=== PATIENT | female | born 1995 | race American Indian/Alaskan Native ===

== ENCOUNTER 2019-05-28 13:46 | Emergency (ER) | payer SELFPAY ==
[2019-05-28] MEDS ORDERED: SODIUM CHLORIDE 0.9% 1000 ML 1,000 ML IV ONE ×2 (14:52→16:28)
--- NOTE | 2019-05-28 15:01 | Emergency Department Report ---
ED Syncope HPI - General Chief Complaint: Syncope Stated Complaint: AMS/SYNCOPE Time Seen by Provider: 05/28/19 14:52 Source: patient, RN/MD, EMS, EMS notes reviewed, old records, other Exam Limitations: no limitations - History of Present Illness Initial Comments: 24 YO FEMALE COMES TO ER FROM [facility] WHERE SHE HAD REPORT OF "PASSING OUT" WHEN SHE WAS IN THE [place] TODAY. PT HAS A/C MALNUTRITION. SHE IS BEING TREATED FOR MD POST AT [facility]. SHE HAS REPORTED DEC PO INTAKE AND FOOD INTAKE. PMH POST WITH MD SHE LIVES WITH [facility] 3 SMALL CHILDREN UNDER 7YEARS NOK MOTHER SEE [facility] CHART Timing/Prior Episodes: remote history Precipitating Factors: Positive: other Context: standing Loss of Consciousness: no loss of consciousness Current Symptoms: back to normal - Related Data Allergies/Adverse Reactions: Allergies No Known Allergies Allergy (Unverified 05/28/19 15:44) ED Review of Systems ROS: Stated complaint: AMS/SYNCOPE Other details as noted in HPI Comment: All other systems reviewed and negative ED Past Medical Hx - Past Medical History Previous Medical History?: Yes Hx Hypertension: No Hx CVA: No Hx Heart Attack/AMI: No Hx Congestive Heart Failure: No Hx Diabetes: No Hx Deep Vein Thrombosis: No Hx Pulmonary Embolism: No Hx GERD: No Hx Liver Disease: No Hx Renal Disease: No Hx of Cancer: No Hx Sickle Cell Disease: No Hx Arthritis: No Hx Headaches / Migraines: No Hx Seizures: No Hx Kidney Stones: No Hx Psychiatric Treatment: Yes Hx Asthma: No Hx COPD: No Hx Tuberculosis: No Hx Dementia: No Hx HIV: No - Surgical History Past Surgical History?: Yes Additional Surgical History: chronic malnutrition- states she does not make herself vomit; poor po per [facility] records; denies anorexia/bulemia - Family History Family history: no significant - Social History Smoking Status: Never Smoker Substance Use Type: None ED Physical Exam - General Limitations: No Limitations General appearance: alert, in no apparent distress - Head Head exam: Present: atraumatic, normocephalic - Eye Eye exam: Present: normal appearance - ENT ENT exam: Present: mucous membranes moist - Neck Neck exam: Present: normal inspection - Respiratory Respiratory exam: Present: normal lung sounds bilaterally. Absent: respiratory distress - Cardiovascular Cardiovascular Exam: Present: regular rate, normal rhythm. Absent: systolic murmur, diastolic murmur, rubs, gallop - GI/Abdominal GI/Abdominal exam: Present: soft, normal bowel sounds - Extremities Exam Extremities exam: Present: normal inspection - Back Exam Back exam: Present: normal inspection - Neurological Exam Neurological exam: Present: alert, oriented X3 - Psychiatric Psychiatric exam: Present: normal affect, normal mood - Skin Skin exam: Present: warm, dry, intact, pallor. Absent: rash ED Course Vital Signs 05/28/19 05/28/19 05/28/19 15:10 15:28 19:10 Temperature 97.9 F 97.9 F 98.2 F Pulse Rate 94 H 94 H 96 H Respiratory 20 20 16 Rate Blood Pressure 97/62 Blood Pressure 97/62 100/59 [Left] O2 Sat by Pulse 100 100 100 Oximetry 05/28/19 05/28/19 19:25 20:25 Temperature Pulse Rate Respiratory 16 16 Rate Blood Pressure Blood Pressure [Left] O2 Sat by Pulse Oximetry ED Medical Decision Making - Lab Data Result diagrams: 05/28/19 15:06 05/28/19 15:06 - EKG Data -: EKG Interpreted by [facility] EKG shows normal: sinus rhythm Rate: normal - EKG Data When compared to previous EKG there are: no significant change Interpretation: no acute changes - Radiology Data Radiology results: report reviewed, image reviewed - Medical Decision Making Labs 05/28/19 05/28/19 05/28/19 15:06 15:06 15:06 WBC 3.9 L RBC 4.08 Hgb 11.0 Hct 33.3 MCV 82 MCH 27 L MCHC 33 RDW 15.6 H Plt Count 328 Lymph % (Auto) 37.8 H [place] % (Auto) 12.2 H Eos % (Auto) 0.6 Baso % (Auto) 1.2 Lymph # 1.5 [place] # 0.5 Eos # 0.0 Baso # 0.0 Seg Neutrophils % 48.2 Seg Neutrophils # 1.9 Sodium 137 Potassium 4.0 Chloride 102.0 Carbon Dioxide 27 Anion Gap 12 BUN 10 Creatinine 0.6 L Estimated GFR > 60 BUN/Creatinine Ratio 17 Glucose 81 Calcium 8.9 Total Bilirubin < 0.20 AST 16 ALT 18 Alkaline Phosphatase 46 Total Creatine Kinase 22 L CK-MB (CK-2) < 1.0 CK-MB (CK-2) Rel Index 4.5 H Total Protein 6.5 Albumin 3.7 L Albumin/Globulin Ratio 1.3 Urine Opiates Screen Urine Methadone Screen Ur Barbiturates Screen Ur Phencyclidine Scrn Ur Amphetamines Screen U Benzodiazepines Scrn Urine Cocaine Screen U Marijuana (THC) Screen 05/28/19 Unknown WBC RBC Hgb Hct MCV MCH MCHC RDW Plt Count Lymph % (Auto) [place] % (Auto) Eos % (Auto) Baso % (Auto) Lymph # [place] # Eos # Baso # Seg Neutrophils % Seg Neutrophils # Sodium Potassium Chloride Carbon Dioxide Anion Gap BUN Creatinine Estimated GFR BUN/Creatinine Ratio Glucose Calcium Total Bilirubin AST ALT Alkaline Phosphatase Total Creatine Kinase CK-MB (CK-2) CK-MB (CK-2) Rel Index Total Protein Albumin Albumin/Globulin Ratio Urine Opiates Screen Presumptive negative Urine Methadone Screen Presumptive negative Ur Barbiturates Screen Presumptive negative Ur Phencyclidine Scrn Presumptive negative Ur Amphetamines Screen Presumptive negative U Benzodiazepines Scrn Presumptive negative Urine Cocaine Screen Presumptive negative U Marijuana (THC) Screen Presumptive negative Vital Signs 05/28/19 05/28/19 15:10 15:28 Temperature 97.9 F 97.9 F Pulse Rate 94 H 94 H Respiratory 20 20 Rate Blood Pressure 97/62 Blood Pressure 97/62 [Left] O2 Sat by Pulse 100 100 Oximetry LABS NOTED UDS NOTED UA NOTED VSS AMBULATORY TAKING PO [address] PENDING AND WHEN NEG PT MAY DC TO [facility] WHERE THEY SHOULD PUSH/ENCOURAGE FLUIDS AND NUTRITION SUPPLEMENTS REPORT TO [facility] - WHEN CT NEG- DC TO [facility] - Differential Diagnosis syncope vasovagal/ poor po intake/intracranial process/infection/ sz Critical care attestation.: If time is entered above; I have spent that time in minutes in the direct care of this critically ill patient, excluding procedure time. ED Disposition Clinical Impression: History of mood disorder, Chronic malnutrition, Syncope, Poor appetite Disposition: DC-01 TO HOME OR SELFCARE Is pt being admited?: No Does the pt Need Aspirin: No Condition: Stable Instructions: Syncope (ED) Additional Instructions: HYDRATE WELL WITH WATER PT SHOULD HAVE ENSURE SUPPLEMENT WITH EACH MEAL AND AT HS MONITOR HER BLOOD SUGAR SHE SHOULD FOLLOW UP WITH PCP ON DISCHARGE AND SHOULD SEE THE [facility] MD FOR FOLLOW UP AVOID ANY MEDS THAT WOULD LOWER HER BLOOD PRESSURE- UNTIL SHE STARTS TO EAT AND DRINK MORE CONSIDER APPETITE STIMULANT ACTIVITY TOLERATED PT SHOULD STAND FROM LYING OR SITTING SLOWLY Referrals: STEPHON LEE MD [Staff Physician] - 3-5 Days Time of Disposition: 16:34
[2019-05-28 15:19] LABS: Basophils % (Auto) 1.2 % (0.0-1.8); Eosinophils % (Auto) 0.6 % (0.0-4.3); Hematocrit 33.3 % (30.3-42.9); Lymphocytes # (Auto) 1.5 K/mm3 (1.2-5.4); Lymphocytes % (Auto) 37.8 % (13.4-35.0); Mean Corpuscular HGB Conc 33 % (30-34); Mean Corpuscular Volume 82 fl (79-97); Monocytes # (Auto) 0.5 K/mm3 (0.0-0.8); Monocytes % (Auto) 12.2 % (0.0-7.3); Platelet Count 328 K/mm3 (140-440); Red Blood Count 4.08 M/mm3 (3.65-5.03); Red Cell Distribution Width 15.6 % (13.2-15.2)
[2019-05-28 15:42] LABS: Alanine Aminotransferase 18 units/L (7-56); Albumin 3.7 g/dL (3.9-5); BUN/Creatinine Ratio 17; Blood Urea Nitrogen 10 mg/dL (7-17); Calcium 8.9 mg/dL (8.4-10.2); Hemolysis Index 6
[2019-05-28 15:50] LABS: Creatine Kinase MB < 1.0 ng/mL (0.0-4.0)
[2019-05-28 16:33] LABS: Amphetamine Screen,Urine PRESUMPTIVE NEGATIVE; Benzodiazepines Screen,Urine PRESUMPTIVE NEGATIVE; Cannabinoid Screen,Urine PRESUMPTIVE NEGATIVE; Cocaine Screen,Urine PRESUMPTIVE NEGATIVE; Methadone Screen,Urine PRESUMPTIVE NEGATIVE; Opiate Screen,Urine PRESUMPTIVE NEGATIVE
[2019-05-28 16:45] LABS: Bilirubin,Urine NEG (Negative); Blood,Urine NEG (Negative); Color,Urine Colorless (Yellow); Protein,Urine <15 mg/dL mg/dL (Negative); Urobilinogen,Urine < 2.0 mg/dL (<2.0)
--- NOTE | 2019-05-28 18:45 | Cat Scan Report ---
CT head/brain wo con INDICATION / CLINICAL INFORMATION: 24 years Female; ams sz. TECHNIQUE: Routine CT head without contrast. All CT scans at this location are performed using CT dos e reduction for ALARA by means of automated exposure control. COMPARISON: None. FINDINGS: BRAIN / INTRACRANIAL CONTENTS: The brain parenchyma appears to demonstrate appropriate attenuation. T here is mild prominence of the cerebral sulci for a patient this age. The ventricular system is withi n upper limits of normal in size and configuration. There is no CT evidence of acute intracranial hem orrhage or significant mass effect. ORBITS: No significant abnormality of visualized orbits. SINUSES / MASTOIDS: No significant abnormality the visualized paranasal sinuses or mastoid air cells. CRANIOCERVICAL JUNCTION: No significant abnormality. ADDITIONAL FINDINGS: None. IMPRESSION: 1. There is no CT evidence of acute intrarenal process. Signer Name: Fernando Harris MD Signed: 05/28/2019 6:41 PM Workstation Name: [id number]
[2019-05-28] MEDS ORDERED: ACETAMINOPHEN 500 MG TAB PO ONE (19:25)
[2019-05-28] MEDS ORDERED: ACETAMINOPHEN 325 MG TAB ONE (19:33)
[2019-05-28] MEDS ORDERED: ACETAMINOPHEN 500 MG TAB ONE (19:35)
[2019-05-28 19:42] VITALS: BP 100/59
== END 2019-05-28 21:38 | disposition home or self-care (01) ==
LOC: EDSEX → ED 13:46
DX: R55 Syncope and collapse (principal); R63.0 Anorexia; E46 Unspecified protein-calorie malnutrition; Z86.59 Personal history of other mental and behavioral disorders; Z98.890 Other specified postprocedural states
CPT/HCPCS: 36415; 70450; 80053; 80307; 81001; 82550; 82553; 85025; 93005; 93010; 96360; 96361; 99284; J7030